=== PATIENT | male | born 1975 | race Caucasian/White ===

== ENCOUNTER 2024-07-26 22:50 | Emergency (ER) | payer OTHER ==
[~2024-07-26] VITALS: Ht 177.8 cm; Wt 99.8 kg
[2024-07-26] MEDS ORDERED: GELATIN SPONGE,ABSORBABLE 1 EA SPONGE TP ONE (23:34)
[2024-07-27] MEDS: GELATIN SPONGE,ABSORBABLE 1 SPONGE SPONGE TP ONE
[2024-07-27] MEDS ORDERED: GELATIN SPONGE,ABSORBABLE 1 SPONGE SPONGE TP ONE
[2024-07-27] MEDS ORDERED: TRANEXAMIC ACID 1,000 MG/10 ML VIAL ONE ×2 (00:09→00:27)
[2024-07-27] MEDS ORDERED: TRANEXAMIC ACID 1,500 MG in IV NS 0.9% 50 ML IV ONE (00:30)
[2024-07-27 00:59] VITALS: BP 155/119; TEMP 99.3; O2SAT 98
== END 2024-07-27 01:00 | disposition home or self-care (01) ==
LOC: ER 23:08
DX: S61.412A Laceration without foreign body of left hand, initial encounter (principal); W25.XXXA Contact with sharp glass, initial encounter; Y93.89 Activity, other specified; Y92.89 Other specified places as the place of occurrence of the external cause; Y99.8 Other external cause status
CPT/HCPCS: 12002; 99282; A6403